=== PATIENT | male | born 1985 | race Two or more races ===

== ENCOUNTER 2017-03-16 22:11 | Observation (INO) | payer SELFPAY ==
[2017-03-16 22:15] VITALS: PULSE 99; RESP 16; TEMP 98.8; O2SAT 96
[2017-03-16 23:02] LABS: BASO # 0.1 K/uL (0.0-0.2); BASO % 0.9 % (0.0-2.0); EOS # 0.1 K/uL (0.0-0.7); HEMOGLOBIN 16.2 g/dL (12.0-18.0); LYMPH # 3.5 K/uL (1.0-4.3); LYMPH % 37.2 % (20.0-40.0); MEAN CELL VOLUME 91.6 fl (80.0-94.0); MEAN CORPUSCULAR HEMOGLOBIN 30.9 pg (27.0-31.0); MEAN CORPUSCULAR HGB CONC 33.7 g/dL (33.0-37.0); MEAN PLATELET VOLUME 8.1 fl (7.2-11.7); MONO # 0.4 K/uL (0.0-0.8); MONO % 4.7 % (0.0-10.0); NEUT # 5.4 K/uL (1.8-7.0); NEUT % 56.2 % (50.0-75.0); RBC 5.23 Mil/uL (4.40-5.90); RED CELL DISTRIBUTION WIDTH 13.8 % (11.5-14.5); WHITE BLOOD COUNT 9.5 K/uL (4.8-10.8)
[2017-03-16 23:06] LABS: BLOOD UREA NITROGEN 12 mg/dl (9-20); CALCIUM 8.6 mg/dL (8.4-10.2); GFR AFRICAN-AMERICAN > 60; GFR NON-AFRICAN AMERICAN > 60
[2017-03-16 23:24] LABS: SALICYLATE < 1.0 mg/dl
[2017-03-16 23:25] LABS: ACETAMINOPHEN < 10.0 ug/ml (10.0-30.0)
--- NOTE | 2017-03-16 23:31 | ED PDOC ---
HPI: Psych/Substance Abuse Time Seen by Provider: 03/16/17 23:26 Chief Complaint (Nursing): Alcohol Ingestion ED Caveat: Acuity of Condition History/Exam Limitations: intoxication Modifying Factor(s): Alcohol Additional Complaint(s): Pt brought in by EMS for supposed alcohol intoxication, pt. unable to answer questions at this time. Past Medical History Reviewed: Nursing Documentation, Vital Signs Vital Signs: Last Vital Signs Temp 98.8 F 03/16/17 22:13 Pulse 99 H 03/16/17 22:13 Resp 16 03/16/17 22:13 BP 141/87 03/16/17 22:13 Pulse Ox 96 03/16/17 22:13 - Family History Family History: States: Unknown Family Hx - Home Medications Home Medications: Ambulatory Orders Medication Instructions Recorded Unobtainable 03/16/17 - Allergies Allergies/Adverse Reactions: Allergies Allergy/AdvReac Type Severity Reaction Status Date / Time Unobtainable Allergy Verified 03/16/17 22:13 Review of Systems Review Of Systems: ROS cannot be obtained secondary to pt's inabilty to answer questions. Physical Exam - Reviewed Nursing Documentation Reviewed: Yes Vital Signs Reviewed: Yes - Physical Exam Appears: Negative for: Well (smells of alcohol, nonverbal) Head Exam: Positive for: ATRAUMATIC, NORMAL INSPECTION, NORMOCEPHALIC Skin: Positive for: Normal Color, Warm, DRY Eye Exam: Positive for: Normal appearance, PERRL ENT: Positive for: Normal ENT Inspection Neck: Positive for: Normal, Supple Cardiovascular/Chest: Positive for: Regular Rate, Rhythm Respiratory: Positive for: Normal Breath Sounds Gastrointestinal/Abdominal: Positive for: Normal Exam, Soft Back: Positive for: Other (linear abrasion to back) Neurologic/Psych: Negative for: Alert (obtunded, arousable only to deep sternal rub) - Laboratory Results Result Diagrams: 03/16/17 22:42 03/16/17 22:42 - ECG O2 Sat by Pulse Oximetry: 96 Pulse Ox Interpretation: Normal Medical Decision Making Medical Decision Making: Alcohol intoxication -no significant signs of trauma warranting imaging at this time -will continue to monitor Time: 05:46 Upon provider reevaluation patient is awake, alert, able to walk with steady gait and requires no further treatment in the ED at this time. Patient will be discharged home. Counseling was provided and all questions were answered regarding diagnosis. There is agreement to discharge plan. Return if symptoms persist or worsen. Clinical Impression: ETOH abuse Scribe Attestation: Documented by Thais Yañez, acting as a scribe for Jimmy Sierra MD. Provider Scribe Attestation: All medical record entries made by the Scribe were at my direction and personally dictated by me. I have reviewed the chart and agree that the record accurately reflects my personal performance of the history, physical exam, medical decision making, and the department course for this patient. I have also personally directed, reviewed, and agree with the discharge instructions and disposition. ED OBSERVATION Date of observation admission: 03/16/17 Time of observation admission: 23:31 - Observation admission statement Patient is being placed in observation because:: Length of time needed to achieve sobriety - Goals of Observation Goals of observation are:: Sobriety Disposition - Clinical Impression Clinical Impression: Alcohol abuse - Patient ED Disposition Is Patient to be Admitted: No Doctor Will See Patient In The: Office Counseled Patient/Family Regarding: Diagnosis - Disposition Disposition: Routine/Home Disposition Time: 05:46 Condition: STABLE
[2017-03-17 06:04] VITALS: BP 114/77
== END 2017-03-17 05:46 | disposition home or self-care (01) ==
LOC: H.ER 22:11 → H.EROBSV 03-17
PROVIDERS: ADMIT Emergency Medicine; ATTEND Emergency Medicine
DX: F10.129 Alcohol abuse with intoxication, unspecified (principal); Y90.8 Blood alcohol level of 240 mg/100 ml or more
CPT/HCPCS: 80048; 85025; 99282; G0378; G0480